=== PATIENT | female | born 2000 | race Caucasian/White ===

== ENCOUNTER 2021-06-18 14:37 | Outpatient (CLI) | payer MEDICAID, SELFPAY | END 2021-06-18 14:38 | disposition home or self-care (01) | LOC: SPT 14:38 | PROVIDERS: PCP Pediatrics; Visit Provider Orthopaedic Surgery | DX: Z46.89 Encounter for fitting and adjustment of other specified devices (principal); M65.4 Radial styloid tenosynovitis [de Quervain] | CPT/HCPCS: L3809 ==

== ENCOUNTER → 2021-11-16 09:36 | Outpatient (BNVA) | payer MEDICAID, SELFPAY | PROVIDERS: PCP Pediatrics; Visit Provider Orthopaedic Surgery | DX: Z01.812 Encounter for preprocedural laboratory examination (principal); Z20.822 Contact with and (suspected) exposure to COVID-19 | CPT/HCPCS: 87635 ==

== ENCOUNTER 2021-11-22 05:38 | Day surgery (SDC) | payer MEDICAID, SELFPAY ==
[2021-11-21 15:02] VITALS: BMI 28.2
[2021-11-22] VITALS (7 sets, daily range): BP systolic 113–159; BP diastolic 55–88; PULSE 69–88; RESP 14–16; TEMP 36.3–36.5; O2SAT 97–100
--- NOTE | 2021-11-22 06:35 | P.ANESASSM_ITS ---
Pre-Anesthetic Assessment Pre-Anesthetic Assessment: Height/Weight: Height 1.68 m Weight 79.379 kg Temp Pulse Resp BP Pulse Ox 97.4 F L 74 16 113/72 97 11/22/21 06:10 11/22/21 06:10 11/22/21 06:10 11/22/21 06:10 11/22/21 06:10 Preop Diagnosis: De Quervain's tenosynovitis Right wrist Proposed Procedure: Operation Date: 11/22/21 07:00 Proposed Procedures p Dequervain Release M65.4 [id number](Right) - Rush Chan MD Was Beta Juan R taken within 24 hours: N/A Was Clonidine taken within 24 hours: N/A Last intake: Intake Last Liquid Date 11/21/21 Last Liquid Time 20:00 Last Solid Date 11/21/21 Last Solid Time 20:00 Social: Social History: No alcohol and No tobacco Exam: Pre-Anes Outpt Exam: alert, oriented x 3, clear to auscultation bi laterally and regular rate & rhythm Airway: Submandibular: WNL Cervical ROM: WNL MP: 1 Dentition: Full History/ROS: No significant history except as noted Pulmonary: Pulmonary: None reported CV/HEM: CV/HEM: None reported : : None reported Hepatic: Hepatic: None reported GI: GI: None reported Metabolic: Metabolic: None reported Musc/skel: Musc/skel: None reported Neuropsych: Neuropsych: None reported Anesthetic Plan: ASA status: 1 Anesthesia: Anesthesia Evaluation, General and MAC Risk of > 500 ml blood loss (7ml/kg in children): No PFSH Anesthesia Female Reproductive History: Date of last menstrual period: 11/17/21 Data Anesthesia Cardiac Studies: No Data to Display
[2021-11-22 06:44] LABS: OR HCG Qualitative Urine Negative (Negative)
[2021-11-22] MEDS: sodium chloride 0.9% 1,000 ML 30 ML IV (06:55)
--- NOTE | 2021-11-22 06:59 | ANES.PROC ---
Anesthesia Procedures Procedure/Date: 11/22/21 After failed attempts by pre-op RN PIV placed by physician with real time US visualization of needle entry and catheter advancement into vessel. 20 g, left forearm, 1 attempt.
--- NOTE | 2021-11-22 07:03 | W.PM.OPSUD ---
Surgery/Procedure H&P Update DATE OF PROCEDURE: November 22, 2021 DATE H&P PERFORMED: 10/24/21 H&P UPDATE INFORMATION: I have reviewed H&P completed within last 30 days PREOP DIAGNOSIS: De Quervain's tenosynovitis Right wrist PLANNED PROCEDURE: Operation Date: 11/22/21 07:00 Proposed Procedures p Dequervain Release M65.4 [id number](Right) - Rush Chan MD
--- NOTE | 2021-11-22 08:00 | PM.OP ---
Operative Report Date of procedure: November 22, 2021 Pre-op Diagnosis: De Quervain's tenosynovitis Right wrist Post-op diagnosis: same Post-op Findings: No degeneration or tearing were identified in the tendons of the first extensor compartment at the wrist Pathology: none sent Surgeon: Rush Chan Anesthesia: Nerve Block (David block) Estimated blood loss (mL): 5 Complications: None Findings: No degeneration or tearing were identified in the tendons of the first extensor compartment at the wrist Condition: stable Disposition: PACU Procedure: The patient was taken to the operating room and given a David block. She was given 2 g of Ancef. Her right upper extremity was prepped and draped in the usual fashion. A timeout was performed. A 1 cm long incision was made over the tip of the radial styloid transversely dissection was carried down bluntly and skin edges are retracted utilizing blunt retractors. The first extensor compartment was identified. It was divided dorsally with a scalpel and scissors proximally and distally revealing tenderness compartment consisting of 2 tendons presumably 1 branch of the extensor pollicis brevis and abductor pollicis longus branch. The floor of the tunnel was involved revealing a separate fibrous covered tunnel containing a separate slip of abductor pollicis longus. Utilizing scissors this tunnel was released proximally distally. All tendons were pulled into the wound inspected and found to be healthy and free of tearing and degeneration. The skin edges were infiltrated with 6 cc of 0.5% Marcaine. They were approximated with interrupted 4-0 Prolene. Sterile dressing fluffs web roll and Rory wrap were applied. The patient was extubated taken to stable condition.
--- NOTE | 2021-11-22 08:47 | ANE.PACU2 ---
Inpatient post-anesthesia follow up: Airway intact: Yes Vital signs: Temperature 97.6 F Pulse Rate 69 Respiratory Rate 14 Blood Pressure 137/70 Pulse Oximetry 100 Oxygen Delivery Me thod Room Air Oxygen Flow Rate 6 Fraction of Inspir ed Oxygen Hydration adequate: Yes Nausea and vomiting: No Pain level: 3 Mental status: Baseline
[2021-11-22] MEDS: HYDROcodone-acetaminophen 5-325 mg Tablet 1 TAB PO (08:48)
== END 2021-11-22 09:00 | disposition home or self-care (01) ==
PROVIDERS: PCP Pediatrics; Visit Provider Orthopaedic Surgery
PROC: (CPT 25000; principal; 2021-11-22 07:00)
DX: M65.4 Radial styloid tenosynovitis [de Quervain] (principal)
CPT/HCPCS: 25000; 36410; 81025; 84703; 96365; J0690; J1885; J2250; J2704; J3490; J7030